=== PATIENT | male | born 1965 | race Caucasian/White ===

== ENCOUNTER 2020-03-14 11:09 | Emergency (ER) | payer MEDICAID ==
[~2020-03-14] VITALS: Ht 165.1 cm; Wt 77.1 kg
[2020-03-14 11:19] VITALS: BP 151/97
--- NOTE | 2020-03-14 12:07 | NUR ---
54 YEAR OLD MALE COMPLAINS OF RIGHT SIDED ABDOMINAL PAIN. PT STATES THAT HE FEELS CONSTIPATED AND HAD DRY HARD STOOLS LAST NIGHT. PT DENIES N/V/D. PT DENIES ANY TRAUMA. PT AOX4, BREATHING EVEN AND UNLABORED, SKIN WARM AND DRY. BED IN LOWEST POSITION, LOCKED, BED RAIL UPX1. PMH - DM2 ALLERGIES - NKA
--- NOTE | 2020-03-14 12:31 | NUR ---
Pt taken to xray via wheelchair
--- NOTE | 2020-03-14 12:40 | NUR ---
Pt returned from xray via wheelchair
--- NOTE | 2020-03-14 13:01 | NUR ---
PT ALERT AND AWAKE, BREATHING EVEN AND UNLABORED. NO DISTRESS NOTED.
--- NOTE | 2020-03-14 14:00 | NUR ---
GABOD MADE AWARE PT STATES HE IS STILL IN PAIN
[2020-03-14] MEDS ORDERED: DICYCLOMINE HCL LIQUID 20 MG, ALUMINUM HYD/MAG/SIMETHICONE 30 ML, LIDOCAINE VISCOUS 2% ... PO ONE ×3 (14:20)
[2020-03-14] MEDS ORDERED: ALUMINUM HYD/MAG/SIMETHICONE 30 ML UDC ONE (14:23)
[2020-03-14] MEDS ORDERED: LIDOCAINE VISCOUS 2% 20 ML UDC ONE (14:23)
[2020-03-14] MEDS ORDERED: DICYCLOMINE HCL LIQUID 10 MG/5 ML UDC ONE (14:24)
[2020-03-14 15:07] VITALS: BP 149/87
--- NOTE | 2020-03-14 15:07 | NUR ---
Patient discharged with v/s stable. Written and verbal after care instructions given and explained. Patient alert, oriented and verbalized understanding of instructions. Ambulatory with steady gait. All questions addressed prior to discharge. ID band removed. Patient advised to follow up with PMD. Rx of COLACE given. Patient educated on indication of medication including possible reaction and side effects. Opportunity to ask questions provided and answered.
== END 2020-03-14 15:07 | disposition home or self-care (01) ==
LOC: MED 11:09
DX: K59.00 Constipation, unspecified (principal); E11.9 Type 2 diabetes mellitus without complications
CPT/HCPCS: 74018; 81002; 99283

== ENCOUNTER 2020-12-16 10:30 | Emergency (ER) | payer SELFPAY ==
[~2020-12-16] VITALS: Ht 165.1 cm; Wt 77.1 kg
[2020-12-16 10:34] VITALS: BP 137/85
--- NOTE | 2020-12-16 10:37 | NUR ---
Patient to bed 7. RN evaluating the patient at bedside.
--- NOTE | 2020-12-16 10:42 | NUR ---
55 Y/O MALE C/O BLE DISCOLORATION X1DAY, DENIES PAIN, DENIES ITCHINESS. PT DENIES RX PRIOR TO ARRIVAL. PT DENIES N/V, DENIES FEVER/CHILLS. PMH: DM, GERD, NEUROPATHY RX: METFORMIN, OMEPRAZOLE, ATORVASTATIN, AND GABAPENTIN NKA
--- NOTE | 2020-12-16 10:58 | NUR ---
Dr. Covington is evaluating the patient at bedside.
[2020-12-16] MEDS ORDERED: CEPH500C16 PO (11:14)
[2020-12-16 11:26] VITALS: BP 137/85
--- NOTE | 2020-12-16 11:27 | NUR ---
Patient discharged with v/s stable. Written and verbal after care instructions given CELLULITIS and explained. Patient alert, oriented and verbalized understanding of instructions. Ambulatory with steady gait. All questions addressed prior to discharge. ID band removed. Patient advised to follow up with PMD. Rx of KEFLEX 500MG PO QID given. Patient educated on indication of medication including possible reaction and side effects. Opportunity to ask questions provided and answered.
== END 2020-12-16 11:27 | disposition home or self-care (01) ==
LOC: MED 10:30
DX: L03.115 Cellulitis of right lower limb (principal); L03.116 Cellulitis of left lower limb; E11.9 Type 2 diabetes mellitus without complications; K21.9 Gastro-esophageal reflux disease without esophagitis; E78.5 Hyperlipidemia, unspecified; Z79.899 Other long term (current) drug therapy
CPT/HCPCS: 99283

== ENCOUNTER 2021-07-20 17:02 | Emergency (ER) | payer MEDICAID ==
[~2021-07-20] VITALS: Ht 165.1 cm; Wt 74.8 kg
[~2021-07-20 17:02] MED LIST: CEPH500C16 PO
--- NOTE | 2021-07-20 17:02 | NUR ---
PT BIBA TAKEN TO ER BED 2.
[2021-07-20 17:14] VITALS: BP 179/97
--- NOTE | 2021-07-20 17:19 | NUR ---
55 Y/O MALE BIBA FROM HOME C/O GENERAL WEAKNESS AND N/V X1DAY. BLOOD SUGAR 426 ON ARRIVAL. DENIES FEVER/CHILLS. PMH: DM, HTN NKA
--- NOTE | 2021-07-20 18:20 | NUR ---
DR. ABRAHAM AT PT BEDSIDE FOR FURTHER EVALUATION.
[2021-07-20] MEDS ORDERED: NACL 0.9% 2,000 ML IV ONE (18:35)
--- NOTE | 2021-07-20 18:47 | NUR ---
PT RESTING IN BED, VSS, WILL CONTINUE TO MONITOR.
--- NOTE | 2021-07-20 19:31 | NUR ---
GAVE REPORT TO JACQUELYN ROSS. TRANSFER OF CARE AT THIS TIME.
--- NOTE | 2021-07-20 19:34 | NUR ---
BLOOD COLLECTED AND WALKED TO LABS
[2021-07-20 19:49] LABS: BASOPHILS # (AUTO) 0.1 K/uL (0.00-0.22); BASOPHILS % (AUTO) 0.8 % (0.0-2.0); EOSINOPHILS # (AUTO) 0.2 K/uL (0-0.4); HEMATOCRIT 46.7 % (36-52); LYMPHOCYTES # (AUTO) 2.6 K/uL (2.0-11.5); LYMPHOCYTES % (AUTO) 28.4 % (20.5-51.1); MEAN CORPUSCULAR HEMOGLOBIN 29 pg (27-31); MEAN CORPUSCULAR HGB CONC 34 g/dL (33-37); MEAN CORPUSCULAR VOLUME 83.2 fL (80-94); MONOCYTES # (AUTO) 0.8 K/uL (0.8-1.0); NEUTROPHILS # (AUTO) 5.4 K/uL (1.8-7.7); NEUTROPHILS % (AUTO) 59.8 % (42.2-75.2); PLATELET COUNT (AUTO) 285 K/uL (140-450); RED BLOOD CELL COUNT(AUTO) 5.62 MIL/uL (4.20-6.10); RED CELL DISTRIBUTION WIDTH 14.1 % (11.6-13.7); WHITE BLOOD COUNT (AUTO) 9.1 K/uL (4.8-10.8)
[2021-07-20 20:07] LABS: ALBUMIN 3.8 g/dL (3.4-5.0); ANION GAP 16.7 (8-16); CARBON DIOXIDE 23.3 mmol/L (21-32); CREATININE 0.9 mg/dL (0.6-1.3); TOTAL BILIRUBIN 0.6 mg/dL (0.0-1.0)
[2021-07-20] MEDS ORDERED: INSULIN REGULAR, HUMAN 100 UNIT/ML VIAL SUBQ ONE (20:25)
[2021-07-20 21:49] VITALS: BP 149/88
--- NOTE | 2021-07-20 21:49 | NUR ---
Patient discharged with v/s stable. Written and verbal after care instructions given and explained. Patient verbalized understanding. Ambulatory with steady gait. All questions addressed prior to discharge. Advised to follow up with PMD. A/OX4, VSS, AMBULATORY, UNLABORED BREATHING, AND CALM DEMEANOR.
== END 2021-07-20 21:49 | disposition home or self-care (01) ==
LOC: MED 17:02
DX: E11.65 Type 2 diabetes mellitus with hyperglycemia (principal); Z91.14 Patient's other noncompliance with medication regimen; K21.9 Gastro-esophageal reflux disease without esophagitis; I10 Essential (primary) hypertension; Z98.890 Other specified postprocedural states; Z79.2 Long term (current) use of antibiotics
CPT/HCPCS: 36415; 80053; 85025; 96361; 96372; 99283; J1815; J7030

== ENCOUNTER 2021-10-12 14:55 | Emergency (ER) | payer SELFPAY ==
[~2021-10-12] VITALS: Ht 160 cm; Wt 83.9 kg
[2021-10-12 15:07] VITALS: BP 157/87
--- NOTE | 2021-10-12 15:17 | NUR ---
PT AMB TO BED 9.
[2021-10-12] MEDS ORDERED: NACL 0.9% 1,000 ML IV ONE (15:20)
[2021-10-12] MEDS ORDERED: KETOROLAC 30 MG/ML VIAL IVP ONE (15:20)
--- NOTE | 2021-10-12 15:49 | NUR ---
dr. perdue bedside evaluating pt
[2021-10-12] MEDS ORDERED: ONDANSETRON 4 MG/2 ML VIAL IVP ONE (15:55)
--- NOTE | 2021-10-12 16:23 | NUR ---
C/O HEADACHE , SHRUTHI ARM AND LEG PAIN , HIGH BP 152/110 AT HOME X TODAY. BLOOD SUGAR 236, P 121, BP 157/87, ORAL TEMP 100 AT THIS TIME. PATIENT COMPLAIN OF A 8/10 PAIN IN HIS HEAD, ARMS AND LEGS. NO CHEST PAIN. IV ESTABLISHED IN R AC RUNNING A BOLUS OF NS. LAST BP WAS 110/69. PT WEARING SUNGLASSES CAUSE LIGHT SENSITIVITY AND MAKING HEAD HURT WORSE. EYE CLOSED, RESTING IN BED. PMH: DM, HTN, GERD NKA
[2021-10-12] MEDS ORDERED: ACET-8386 PO (16:56)
[2021-10-12] MEDS ORDERED: ONDA8TAB87 PO (16:56)
[2021-10-12] MEDS ORDERED: IBUP-2213 PO (16:56)
[2021-10-12 17:45] VITALS: BP 118/70
--- NOTE | 2021-10-12 17:46 | NUR ---
Patient discharged with v/s stable. Written and verbal after care instructions given and explained. Patient alert, oriented and verbalized understanding of instructions. Ambulatory with steady gait. All questions addressed prior to discharge. ID band removed. Patient advised to follow up with PMD. Rx of IBUPROFEN, ZOFRAN, AND HYDROCODONE-ACETAMINOPHEN given. Patient educated on indication of medication including possible reaction and side effects. Opportunity to ask questions provided and answered.
[2021-10-13] MEDS ORDERED: METO-486 PO (05:43)
== END 2021-10-12 17:45 | disposition home or self-care (01) ==
LOC: MED 14:55
DX: R51.9 Headache, unspecified (principal); M54.2 Cervicalgia; M79.10 Myalgia, unspecified site; R50.9 Fever, unspecified; R11.0 Nausea; E11.9 Type 2 diabetes mellitus without complications; I10 Essential (primary) hypertension; K21.9 Gastro-esophageal reflux disease without esophagitis
CPT/HCPCS: 81002; 82948; 96361; 96374; 96375; 99284; J1885; J2405; J7030

== ENCOUNTER 2021-10-13 03:53 | Emergency (ER) | payer SELFPAY ==
[~2021-10-13] VITALS: Ht 165.1 cm; Wt 83.9 kg
[~2021-10-13 03:53] MED LIST changes: +ACET-8386 PO; +IBUP-2213 PO; +ONDA8TAB87 PO
[2021-10-13 03:55] VITALS: BP 132/81
--- NOTE | 2021-10-13 04:01 | NUR ---
PT TAKEN TO BED 12
--- NOTE | 2021-10-13 04:20 | NUR ---
XRAY AT BEDSIDE
[2021-10-13 04:39] LABS: BASOPHILS % (AUTO) 0.3 % (0.0-2.0); EOSINOPHILS % (AUTO) 0.1 % (0.0-4.0); HEMATOCRIT 45.5 % (36-52); LYMPHOCYTES # (AUTO) 1.2 K/uL (2.0-11.5); LYMPHOCYTES % (AUTO) 10.5 % (20.5-51.1); MEAN CORPUSCULAR HEMOGLOBIN 28 pg (27-31); MEAN CORPUSCULAR HGB CONC 33 g/dL (33-37); MEAN CORPUSCULAR VOLUME 84.2 fL (80-94); MONOCYTES # (AUTO) 0.8 K/uL (0.8-1.0); MONOCYTES % (AUTO) 6.5 % (1.7-9.3); NEUTROPHILS # (AUTO) 9.7 K/uL (1.8-7.7); NEUTROPHILS % (AUTO) 82.6 % (42.2-75.2); PLATELET COUNT (AUTO) 290 K/uL (140-450); RED CELL DISTRIBUTION WIDTH 14.9 % (11.6-13.7); WHITE BLOOD COUNT (AUTO) 11.8 K/uL (4.8-10.8)
--- NOTE | 2021-10-13 04:43 | NUR ---
55 Y/O MALE BIBS, C/O CP X2HRS. PT STATES HE WAS SEEM AT [facility] LAST NIGHT FOR LIMB PAIN 01/22. PT WAS DISCHARGED AND AT HOME HE BEGAN TO FEEL CP, SOB, AND SHAKEY. PT TOOK WIFES 600MG IBUPROFEN WITH MINIMAL RELIEF. PT IS SPEAKING IN FULL SENTENCES AND UNLABORED BREATHING. PT IS ABLE TO AMBULATE WITHOUT ASISSTANCE; A/OX4, GCS-15; PT DENIES FEVER, COUGH, VOMITING, OR DIARRHEA. PT SEATED IN BED WITH HOB RAISED, BED IN LOWEST POSITION, AND RAIL UP X1. NKA
--- NOTE | 2021-10-13 04:43 | NUR ---
ER MD AT BEDSIDE EVALUATING PT
[2021-10-13] MEDS ORDERED: ACETAMINOPHEN 325 MG TAB PO ONE (04:50)
[2021-10-13] MEDS ORDERED: METOCLOPRAMIDE 10 MG/2 ML INJ VIAL IVP ONE (04:50)
[2021-10-13] MEDS ORDERED: NACL 0.9% 500 ML IV ONE (04:50)
[2021-10-13 04:53] LABS: ALBUMIN 3.5 g/dL (3.4-5.0); ANION GAP 14.8 (8-16); CARBON DIOXIDE 24.8 mmol/L (21-32); POTASSIUM 3.6 mmol/L (3.5-5.1); TOTAL BILIRUBIN 0.9 mg/dL (0.0-1.0)
[2021-10-13 04:56] LABS: PROTHROMBIN TIME 15.4 secs (10.8-13.4)
[2021-10-13] MEDS ORDERED: METO-486 PO (05:43)
[2021-10-13 05:59] VITALS: BP 132/81
--- NOTE | 2021-10-13 06:00 | NUR ---
Patient discharged with v/s stable. Written and verbal after care instructions given and explained. Patient alert, oriented and verbalized understanding of instructions. Ambulatory with steady gait. All questions addressed prior to discharge. ID band removed. Patient advised to follow up with PMD. Rx of REGLAN given. Patient educated on indication of medication including possible reaction and side effects. Opportunity to ask questions provided and answered. VSS, A/OX4, AMBULATORY, UNLABORED BREATHING, AND CALM DEMEANOR.
--- NOTE | 2021-10-15 10:20 | NUR ---
LATE ENTRY-IVF END TIME
== END 2021-10-13 06:00 | disposition home or self-care (01) ==
LOC: MED 03:53
DX: B34.9 Viral infection, unspecified (principal); R07.9 Chest pain, unspecified; R51.9 Headache, unspecified; E11.9 Type 2 diabetes mellitus without complications; K21.9 Gastro-esophageal reflux disease without esophagitis; I10 Essential (primary) hypertension; Z79.899 Other long term (current) drug therapy; Z79.891 Long term (current) use of opiate analgesic; Z79.1 Long term (current) use of non-steroidal anti-inflammatories (NSAID); Z79.2 Long term (current) use of antibiotics
CPT/HCPCS: 36415; 71045; 80053; 83880; 84484; 85025; 85610; 85730; 93005; 96361; 96374; 99285; J2765; J7030; Q0092

== ENCOUNTER 2023-11-13 18:39 | Emergency (ER) | payer OTHER ==
[~2023-11-13] VITALS: Ht 165.1 cm; Wt 95.3 kg
[~2023-11-13 18:39] MED LIST changes: -ACET-8386 PO; +ACET-8905 PO; +METO-486 PO
[2023-11-13 18:49] VITALS: BP 136/81; PULSE 98; RESP 18; TEMP 97.2; O2SAT 99
[2023-11-13] MEDS: ONDANSETRON 4 MG ODT PO ONE (19:35)
[2023-11-13 19:48] LABS: BASOPHILS % (AUTO) 0.3 % (0.0-2.0); EOSINOPHILS # (AUTO) 0.1 K/uL (0-0.4); EOSINOPHILS % (AUTO) 1.1 % (0.0-4.0); HEMATOCRIT 46.2 % (36-52); HEMOGLOBIN 15.7 g/dL (12.0-18.0); LYMPHOCYTES # (AUTO) 1.2 K/uL (2.0-11.5); LYMPHOCYTES % (AUTO) 21.9 % (20.5-51.1); MEAN CORPUSCULAR HEMOGLOBIN 29 pg (27-31); MEAN CORPUSCULAR HGB CONC 34 g/dL (33-37); MONOCYTES # (AUTO) 0.2 K/uL (0.8-1.0); NEUTROPHILS % (AUTO) 72.7 % (42.2-75.2); PLATELET COUNT (AUTO) 278 K/uL (140-450); RED CELL DISTRIBUTION WIDTH 16.2 % (11.6-13.7); WHITE BLOOD COUNT (AUTO) 5.5 K/uL (4.8-10.8)
[2023-11-13 20:04] LABS: ALBUMIN 3.7 g/dL (3.4-5.0); ANION GAP 16.5 (8-16); CALCIUM 9.7 mg/dL (8.5-10.1); CARBON DIOXIDE 21.3 mmol/L (21-32); CREATININE 1.3 mg/dL (0.6-1.3); POTASSIUM 3.8 mmol/L (3.5-5.1); TOTAL BILIRUBIN 0.4 mg/dL (0.0-1.0); TOTAL PROTEIN, SERUM 7.9 g/dL (6.4-8.2)
[2023-11-13] MEDS ORDERED: DOCU-300 PO (21:26)
[2023-11-13] MEDS ORDERED: POLY17PD72 PO (21:26)
[2023-11-13] MEDS: SODIUM PHOSPHATE 118 ML ENEM RC ONE (21:29)
[2023-11-13] MEDS: GLYCERIN ADULT 1 SUPP RC ONE (21:32)
[2023-11-13 21:45] VITALS: BP 136/81; PULSE 98; RESP 18; TEMP 97.2; O2SAT 99
== END 2023-11-13 21:45 | disposition home or self-care (01) ==
LOC: MED 18:39
DX: K59.00 Constipation, unspecified (principal); E11.9 Type 2 diabetes mellitus without complications; K21.9 Gastro-esophageal reflux disease without esophagitis; I10 Essential (primary) hypertension; Z79.1 Long term (current) use of non-steroidal anti-inflammatories (NSAID); Z79.2 Long term (current) use of antibiotics; Z79.899 Other long term (current) drug therapy
CPT/HCPCS: 36415; 74176; 80053; 83690; 85025; 99284; Q0162